=== PATIENT | male | born 1975 | race Asian ===

== ENCOUNTER 2019-01-25 05:36 | Emergency (ER) | payer OTHER ==
[~2019-01-25] VITALS: Ht 172.7 cm; Wt 81.6 kg
[2019-01-25] MEDS ORDERED: UNOBMED (05:43)
--- NOTE | 2019-01-25 05:43 | NUR ---
ED Nurse Note: pt brought in by [employer] [employer] from restaurant, per EMS report, pt was drunk and refused to pay, [employer] was dispatched and called [employer]. pt AA&ox1, states he just wants to sleep, noted slurred speech. will cont monitor. vss. airway intact, resp even and unlabored on RA.
[2019-01-25 05:44] VITALS: BP 105/74
--- NOTE | 2019-01-25 05:51 | Emergency Room Report ---
History of Present Illness General Chief Complaint: Alcohol Intoxication Source: Patient, EMS Present Illness HPI Is a 43-year-old male with no past medical history. He presents with alcohol intoxication. He was at a restaurant on [place]. He was too intoxicated so they called 911. Patient denies any trauma. Denies any drug use. Unable to contact his friends to pick him up. No other issue. Allergies: Coded Allergies: UNABLE TO ASSESS (Unverified , 01/25/19) Patient History Past Medical History: see triage record, old chart reviewed Past Surgical History: none Social History: Reports: alcohol use Immunizations: other Reviewed Nursing Documentation: PMH: Agreed; PSxH: Agreed Nursing Documentation-PMH Past Medical History Deferred: Pt Cognitively Impaired Review of Systems Eye: Denies: eye pain, blurred vision ENT: Denies: ear pain, nose congestion, throat swelling Respiratory: Denies: cough, shortness of breath Cardiovascular: Denies: chest pain, palpitations Gastrointestinal: Denies: abdominal pain, diarrhea, nausea, vomiting Musculoskeletal: Denies: back pain, joint pain Skin: Denies: rash Neurological: Denies: headache, numbness Endocrine: Denies: increased thirst, increased urine Hematologic/Lymphatic: Denies: easy bruising All Other Systems: negative except mentioned in HPI Physical Exam Vital Signs Date Time Temp Pulse Resp B/P (MAP) Pulse Ox O2 Delivery O2 Flow Rate FiO2 01/25/19 05:37 97.5 89 16 95 Room Air 01/25/19 05:44 105/74 vitals normal Sp02 EP Interpretation: reviewed, normal General Appearance: well appearing, no apparent distress, alert Head: normocephalic, atraumatic Eyes: bilateral eye PERRL, bilateral eye EOMI ENT: hearing grossly normal, normal pharynx Neck: full range of motion, supple, no meningismus Respiratory: chest non-tender, lungs clear, normal breath sounds Cardiovascular #1: regular rate, rhythm, no murmur Gastrointestinal: normal bowel sounds, non tender, no mass, no organomegaly, no bruit, non-distended Musculoskeletal: back normal, gait/station normal, normal range of motion Psychiatric: mood/affect normal Skin: warm/dry Medical Decision Making Diagnostic Impression: Primary Impression: Acute alcoholic intoxication Qualified Codes: F10.920 - Alcohol use, unspecified with intoxication, uncomplicated ER Course patient with alcohol intoxication. We'll observe until clinical sobriety or until someone can pick him up. No trauma to warrant x-ray or CT scan. We'll discharge home. Last Vital Signs Date Time Temp Pulse Resp B/P (MAP) Pulse Ox O2 Delivery O2 Flow Rate FiO2 01/25/19 05:44 86 16 Room Air 01/25/19 05:44 97.5 105/74 95 Status: improved Disposition: HOME, SELF-CARE Condition: Stable Patient Instructions: Alcohol Intoxication, [id number] Additional Instructions: Follow-up with your Dr. in 3-5 days. Abstain from drinking to excess. Return if worse. Michael Dejesus MD January 25, 2019 05:51
--- NOTE | 2019-01-25 07:16 | NUR ---
HAND-OFF: Report given to RN Irvin and endorsed care. pt vss, resp even and unlabored on RA. no sx distress.
[2019-01-25 07:20] VITALS: BP 111/71
--- NOTE | 2019-01-25 07:22 | NUR ---
ER DISCHARGE NOTE: Patient is cleared to be discharged per ERMD, pt is aox4, sober, on room air, with stable vital signs. pt was given dc instructions, pt was able to verbalize understanding, pt id band removed. Pt is able to ambulate with steady gait. pt took all belongings.
== END 2019-01-25 07:23 | disposition home or self-care (01) ==
LOC: EDBD 05:36 → EMR 06:06
DX: F10.129 Alcohol abuse with intoxication, unspecified (principal)
CPT/HCPCS: 99283